=== PATIENT | female | born 1945 | race Caucasian/White ===

== ENCOUNTER 2017-01-13 06:49 | Day surgery (SDC) | payer MEDICARE, OTHER ==
--- NOTE | ~2017-01-13 | EGD ---
EGD REPORT [facility] [address] [place]. [address] NAME: GUNNER MURILLO : [birth year] STATUS : REG [facility]#: [id number] AGE: 71 ADM/REG DATE : 01/13/17 MR#: [id number] REPORT SERV DATE: 01/13/17 DICTATED BY: VONDA TRAN DATE: 01/13/17 REPORT STATUS : Draft TRANSCRIBED BY: [employer] DATE: 01/13/17 [facility] Patient Name: Gunner Murillo Date of : 1945 Attending MD: VONDA TRAN, Procedure Date No Time: 01/13/2017 Procedure: Upper EUS Indications: Dilated pancreatic duct on MRI Referring MD: Bharat Shahid, SHERRY STANLEY MD Medicines: Monitored Anesthesia Care Complications: No immediate complications. Estimated blood loss: None. Procedure: After obtaining informed consent, the endoscope was passed under direct vision. Throughout the procedure, the patient's blood pressure, pulse, and oxygen saturations were monitored continuously. The Endoscope was introduced through the mouth, and advanced to the second part of duodenum. The GIF [id number] was introduced through the mouth, and advanced to the second part of duodenum. Findings: Endoscopic Finding : The examined esophagus was endoscopically normal. The entire examined stomach was endoscopically normal. The cardia and gastric fundus were normal on retroflexion. A single medium-sized nodule with a localized distribution was found in the duodenal bulb. Biopsies were taken with a cold forceps for histology. Verification of patient identification for the specimen was done. Estimated blood loss was minimal. A single medium-sized nodule with a localized distribution was found at 2nd part of the duodenum. Biopsies were taken with a cold forceps for histology. Verification of patient identification for the specimen was done. Estimated blood loss was minimal. Endosonographic Finding : The pancreatic duct had a dilated endosonographic appearance in the side branches of the pancreatic duct in the body and the tail. The pancreatic duct measured up to 7 mm in diameter. The pancreatic duct had a dilated endosonographic appearance in the pancreatic head. The pancreatic duct measured up to 3.4 mm in diameter. The main pancreatic duct had a normal endosonographic appearance in the body of the pancreas. The pancreatic duct measured up to 1 mm in diameter. Endosonographic imaging of the pancreas showed no mass. There was no sign of significant endosonographic abnormality in the examined duodenum. EGD REPORT [address] [place]. [address] NAME: GUNNER MURILLO : [birth year] STATUS : REG [facility] PAT#: [id number] AGE: 71 ADM/REG DATE : 01/13/17 MR#: [id number] REPORT SERV DATE: 01/13/17 DICTATED BY: VONDA TRAN DATE: 01/13/17 REPORT STATUS : Draft TRANSCRIBED BY: [employer] DATE: 01/13/17 There was dilation in the common bile duct which measured up to 7 mm. Endosonographic imaging of the visualized portion of the biliary system showed no stones. Endosonographic images of the stomach were unremarkable. There was no sign of significant endosonographic abnormality in the esophagus. Impression: - Normal esophagus. - Normal stomach. - Nodule found in the duodenum. Biopsied. - Nodule found in the duodenum. Biopsied. - The pancreatic duct had a dilated endosonographic appearance in the side branches of the pancreatic duct. The pancreatic duct measured up to 7 mm in diameter. - The pancreatic duct had a dilated endosonographic appearance in the pancreatic head. The pancreatic duct measured up to 3.4 mm in diameter. - The pancreatic duct had a normal endosonographic appearance in the body of the pancreas. The pancreatic duct measured up to 1 mm in diameter. - There was no sign of significant pathology in the examined duodenum. - There was dilation in the common bile duct which measured up to 7 mm. - Endosonographic images of the stomach were unremarkable. - There was no sign of significant pathology in the esophagus. Recommendation: - Return to previous diet. - Continue present medications. - Await path results. - Would follow up dilated side branches with MRI in one year. Procedure Code(s): --- Professional --- 98005, Esophagogastroduodenoscopy, flexible, transoral; with endoscopic ultrasound examination, including the esophagus, stomach, and either the duodenum or a surgically altered stomach where the jejunum is examined distal to the anastomosis Diagnosis Code(s): --- Professional --- K31.9, Disease of stomach and duodenum, unspecified R93.3, Abnormal findings on diagnostic imaging of other parts of digestive tract K83.8, Other specified diseases of biliary tract EGD REPORT [facility] [address] [place] [address]. [place]. [address] NAME: GUNNER MURILLO : 41 STATUS : REG [facility] PAT#: [id number] AGE: 71 ADM/REG DATE : 01/13/17 MR#: [id number] REPORT SERV DATE: 01/13/17 DICTATED BY: VONDA TRAN DATE: 01/13/17 REPORT STATUS : Draft TRANSCRIBED BY: [employer] DATE: 01/13/17 K86.8, Other specified diseases of pancreas CPT copyright 2013 [employer]. All rights reserved. The codes documented in this report are preliminary and upon comptroller review may be revised to meet current compliance requirements. VONDA TRAN, 01/13/2017 8:46 AM Number of Addenda: 0 Note Initiated On: 01/13/2017 7:59 AM Scope Withdrawal Time 0 hours 0 minutes 0 seconds [address] [place] [address]
[~2017-01-13 06:49] MED LIST: ASAB PO; FEMARA PO; HYZAAR 100/25 T1 TAB PO; IMDUR120 PO; MAGOX4 PO; PERCOGESIC TAB1 TAB PO; PLAVIX PO; PROTONIX PO; TOPXL100 PO; VIBERZI PO; ZOCOR40 PO; ZOFRAN ODT4 MG PO
[2017-01-13 07:27] LABS: BUN (BLOOD UREA NITROGEN) 16 MG/DL (6-23); CALCIUM, SERUM 10.8 MG/DL (8.5-10.4); CHLORIDE, SERUM 103 MMOL/L (96-112); CO2 (CARBON DIOXIDE) 27 MMOL/L (24-34); CREATININE 1.04 MG/DL (0.55-1.02); GFR AFRICAN AMERICAN 62 ML/MIN (>=60); GFR NON AFRICAN AMERICAN 53 ML/MIN (>=60); GLUCOSE, SERUM 90 MG/DL (60-99); POTASSIUM, SERUM 5.1 MMOL/L (3.5-5.3); SODIUM, SERUM 140 MMOL/L (135-148)
== END 2017-01-13 23:59 | disposition home health service (06) ==
LOC: DMU 06:49
PROVIDERS: Anesthesiology; Internal Medicine Gastroenterology
PROC: 0DJ08ZZ Inspection of Upper Intestinal Tract, Via Natural or Artificial Opening Endoscopic (ICD-10-PCS; 2017-01-13)
PROC: BD47ZZZ Ultrasonography of Gastrointestinal Tract (ICD-10-PCS; 2017-01-13)
PROC: 0DB98ZX Excision of Duodenum, Via Natural or Artificial Opening Endoscopic, Diagnostic (ICD-10-PCS; principal; 2017-01-13 08:00)
DX: K29.80 Duodenitis without bleeding (principal); I10 Essential (primary) hypertension; I25.10 Atherosclerotic heart disease of native coronary artery without angina pectoris; M19.90 Unspecified osteoarthritis, unspecified site; K21.9 Gastro-esophageal reflux disease without esophagitis; K83.8 Other specified diseases of biliary tract; K86.89 Other specified diseases of pancreas; Z88.5 Allergy status to narcotic agent; Z87.891 Personal history of nicotine dependence; Z90.710 Acquired absence of both cervix and uterus; Z90.49 Acquired absence of other specified parts of digestive tract
CPT/HCPCS: 80048; 88305